=== PATIENT | male | born 1985 ===

== ENCOUNTER → 2019-07-16 10:10 | Outpatient (CLI) | payer OTHER, SELFPAY ==
--- NOTE | ~2019-07-16 | MR_ITS ---
EXAMINATION: MR lumbar spine wo con DATE: 07/16/2019 10:51 INDICATION: Low back pain. TECHNIQUE: Magnetic resonance imaging (MRI) of the lumbar spine was performed without intravenous con trast. Sequences included sagittal T2-weighted FSE, sagittal T2-weighted FS FSE, sagittal T1-weighted FSE, and axial T2-weighted FSE. COMPARISON: None FINDINGS: Straightening of the normal cervical lordosis. 5 mm retrolisthesis L5 on S1. Vertebral body heights a re normal. Normal marrow signal. Annular fissure at L5-S1 with disc desiccation, small disc extrusio n and minimal disc height loss. Remaining discs are normal. The conus medullaris terminates at L2. Th ere is normal signal in the caudal spinal cord. Paravertebral soft tissues are unremarkable. The foll owing disc levels are specifically discussed: T12-L1: The disc does not extend beyond the endplate margin. There is mild left and minimal right fac et joint osteoarthritis. There is no neural foraminal stenosis. There is no central canal stenosis. L1-L2: The disc does not extend beyond the endplate margin. There is mild left and minimal right face t joint osteoarthritis. There is no neural foraminal stenosis. There is no central canal stenosis. L2-L3: The disc does not extend beyond the endplate margin. There is mild bilateral, left greater [place] n right facet joint osteoarthritis. There is no neural foraminal stenosis. There is no central canal stenosis. L3-L4: The disc does not extend beyond the endplate margin. There is mild bilateral facet joint osteo arthritis. There is no neural foraminal stenosis. There is no central canal stenosis. L4-L5: The disc does not extend beyond the endplate margin. There is mild left and moderate right fac et joint osteoarthritis. There is no neural foraminal stenosis. There is no central canal stenosis. L5-S1: Central disc extrusion with disc material extending couple millimeter caudal to the inferior e ndplate of S1. There is mild right and minimal left facet joint osteoarthritis. There is no neural fo raminal stenosis. There is no central canal stenosis. IMPRESSION: 1. Minimal to mild lumbar spondylosis most notable for annular fissure with small central disc extrus ion at L5-S1. Reviewed, dictated and finalized at location B. IMPRESSION: 1. Minimal to mild lumbar spondylosis most notable for annular fissure with sma ll central disc extrusion at L5-S1.
== END ==
DX: M47.896 Other spondylosis, lumbar region (principal); M51.27 Other intervertebral disc displacement, lumbosacral region
CPT/HCPCS: 72148